=== PATIENT | female | born 1950 | race Caucasian/White ===

== ENCOUNTER → 2023-11-10 12:44 | Outpatient (REF) | payer MEDICARE, OTHER, SELFPAY | LOC: HWWDC 12:44 | PROVIDERS: ATTENDING PHYSICIAN Registered Nurse | DX: Z12.31 Encounter for screening mammogram for malignant neoplasm of breast (principal) | CPT/HCPCS: 77063; 77067 ==

== ENCOUNTER → 2024-04-15 09:22 | Outpatient (REF) | payer MEDICARE, OTHER, SELFPAY | LOC: RAD 09:22 | PROVIDERS: ATTENDING PHYSICIAN Student in an Organized Health Care Education/Training Program; FAMILY PHYSICIAN Registered Nurse | DX: G89.29 Other chronic pain (principal); M25.469 Effusion, unspecified knee; M25.562 Pain in left knee; M79.643 Pain in unspecified hand; M79.89 Other specified soft tissue disorders; M81.0 Age-related osteoporosis without current pathological fracture; M84.40XA Pathological fracture, unspecified site, initial encounter for fracture | CPT/HCPCS: 72040; 72072; 72100 ==

== ENCOUNTER → 2024-05-23 14:38 | Outpatient (REF) | payer MEDICARE, OTHER, SELFPAY | LOC: HWRAD 14:38 | PROVIDERS: ATTENDING PHYSICIAN Student in an Organized Health Care Education/Training Program; FAMILY PHYSICIAN Registered Nurse | DX: G89.29 Other chronic pain (principal); M25.469 Effusion, unspecified knee; M25.562 Pain in left knee; M79.643 Pain in unspecified hand; M79.89 Other specified soft tissue disorders; M81.0 Age-related osteoporosis without current pathological fracture; M84.40XA Pathological fracture, unspecified site, initial encounter for fracture | CPT/HCPCS: 77080 ==

== ENCOUNTER → 2024-11-10 11:29 | Outpatient (REF) | payer MEDICARE, OTHER, SELFPAY | LOC: HWWDC 11:29 | PROVIDERS: ATTENDING PHYSICIAN Registered Nurse; REFERRING PHYSICIAN Obstetrics & Gynecology | DX: Z12.31 Encounter for screening mammogram for malignant neoplasm of breast (principal) | CPT/HCPCS: 77063; 77067 ==

== ENCOUNTER 2025-02-06 15:41 | Emergency (ER) | payer MEDICARE, OTHER, SELFPAY ==
[2025-02-06 17:21] VITALS: BMI 22.3
--- NOTE | 2025-02-06 17:32 | ED.GENMED ---
History of Present Illness
General
Chief Complaint: Fall
Time Seen by Provider: 02/06/25 17:03
History of Present Illness
History of Present Illness:
74-year-old female presents to the emergency department for evaluation of a headache and right shoulder/clavicle pain after falling from the third rung of a ladder prior to arrival. She denies LOC. Does not take any anticoagulants. No medications
administered prior to arrival for pain control. Denies upper extremity paresthesias, chest pain, or shortness of breath
Review of Systems
Review of Systems
Allergies reviewed?: Yes
All Other Systems: ROS reviewed and negative except as documented in HPI and ROS
Phy Exam
Physical Exam
Physical Exam:
GEN: Well appearing, NAD, WDWN
HEENT: Moderate-sized cephalohematoma to the right parietal scalp, no crepitus or open wounds oral mucosa moist, no scleral icterus, no midline cervical spine tenderness
Cardiac: Regular rate
Lung: No respiratory distress, no tachypnea
MSK: Visible deformity to right midshaft clavicle, right shoulder range of motion limited secondary to pain. Strong right radial pulse with intact sensation. No midline thoracic or lumbar spinal tenderness to palpation
Skin: Good color, no pallor or jaundice, no rashes
Neuro: AO x3, moves all extremities freely
Psych: Calm, cooperative
Course
Orders/Labs/Results
Orders:
Orders
02/06/25 15:47
CT Head W/o Iv Contrast Routine
Comment:
Reason For Exam: fall from ladder
CR Clavicle - Right Complete Urgent
Comment:
Reason For Exam: fall from ladder
CR Shoulder, Trauma - Right Urgent
Comment:
Reason For Exam: fall from ladder
02/06/25 17:33
Acetaminophen [Tylenol] 650 mg PO NOW STA
Ibuprofen [Motrin] 600 mg PO NOW STA
Vital Signs
Initial and Last Documented VS:
Initial Vital Signs
Pulse Resp BP Pulse Ox
66 16 136/76 99
02/06/25 18:17 02/06/25 18:17 02/06/25 18:17 02/06/25 18:17
Last Documented Vital Signs
Pulse Resp BP Pulse Ox
66 16 136/76 99
02/06/25 18:17 02/06/25 18:17 02/06/25 18:17 02/06/25 18:17
MDM/Problems Addressed
MDM/Problems Addressed:
Imaging reveals a comminuted midshaft clavicular fracture, there is no palpable skin tenting. No evident humeral injury on imaging. CT of the head is unremarkable. No further signs of injury on exam, recommend outpatient Ortho follow-up, sling
provided at time of discharge, educated on supportive care
*Pulse Oximetry
Patient hypoxic: no
*Critical Care Note
Total Time (30-74mins, 75-104mins- exclusive of procedures): Not Applicable
ED Attending Note
-
Portions of this chart may have been created with voice recognition software.� Occasional wrong word or��sound alike� substitutions may have occurred due to the inherent limitations of voice recognition software.
Discharge Plan
Departure
Patient Disposition: Home (Routine Discharge)
Date of Disposition: 02/06/25
Time of Disposition: 17:56
Patient with high blood pressure during this ER visit?: No
Discharge Problem:
Closed fracture of right clavicle, Hematoma of scalp
Instructions: [facility] ED
Referrals:
Tommie Gilbert CRNP [Family Provider, Internal Medicine]
Dakota Bailon MD [Active, Orthopedics]
Activity Restrictions/Additional Instructions:
Take 650 of acetaminophen and 600mg ibuprofen every 6-8 hours for pain control
Use the sling until Orthopedic follow up; however, please be sure to remove the sling for at least one hour per day to allow the shoulder and elbow to stretch
Interventions
Interventions:
*Risk Screen - Suicide Last Done: 02/06/25 15:45
*General Assessment Last Done: 02/06/25 15:45
*Neglect/Abuse Screening Last Done: 02/06/25 15:45
*ED- Fall Risk Assessment Last Done: 02/06/25 18:18
*ED COVID-19 Vaccine History Last Done: 02/06/25 15:45
*ED Influenza Vaccine History Last Done: 02/06/25 15:45
*Nursing Disposition Last Done: 02/06/25 18:19
ED-Musculoskeletal Assessment Last Done: 02/06/25 17:21
ED- Neurological Assessment Last Done: 02/06/25 17:21
ED-Skin Assessment Last Done: 02/06/25 17:21
Discharge Date and Time
Discharge Date/Time: 02/06/25 18:19
Print Language: [id number]
[2025-02-06] MEDS: MOTRIN 600 MG PO (17:39)
[2025-02-06] MEDS: TYLENOL 650 MG PO (17:40)
[2025-02-06 18:17] VITALS: BP 136/76
== END 2025-02-06 18:19 | disposition home or self-care (01) ==
LOC: EMR 15:41
PROVIDERS: EMERGENCY PHYSICIAN Emergency Medicine; FAMILY PHYSICIAN Registered Nurse
DX: S42.021A Displaced fracture of shaft of right clavicle, initial encounter for closed fracture (principal); S00.03XA Contusion of scalp, initial encounter; W11.XXXA Fall on and from ladder, initial encounter
CPT/HCPCS: 99284; 70450; 73000; 73030